=== PATIENT | female | born 1965 | race Caucasian/White ===

== ENCOUNTER 2021-03-22 13:06 | Outpatient (REF) | payer MEDICAID, SELFPAY ==
[2021-03-24 17:01] LABS: COVID-19 RT-PCR UVMMC Result Negative (Negative)
== END 2021-03-22 13:07 | disposition home or self-care (01) ==
LOC: NCHCN 13:06
PROVIDERS: Visit Provider Internal Medicine
DX: Z20.822 Contact with and (suspected) exposure to COVID-19 (principal); J06.9 Acute upper respiratory infection, unspecified
CPT/HCPCS: U0003